=== PATIENT | male | born 1945 | race Caucasian/White ===

== ENCOUNTER 2016-10-06 14:42 | Outpatient (CLI) | payer MEDICARE, OTHER | END 2016-10-06 14:43 | disposition home or self-care (01) | DX: E78.00 Pure hypercholesterolemia, unspecified (principal); E29.1 Testicular hypofunction ==

== ENCOUNTER 2018-10-15 15:33 | Emergency (ER) | payer MEDICARE, OTHER ==
[2018-10-15 15:46] VITALS: BP 134/70
--- NOTE | 2018-10-15 16:23 | ED Physician Documentation ---
PD HPI UPPER EXT INJURY - Stated complaint Stated Complaint: GLF-SHOULDER PX - Chief complaint Chief Complaint: Ext Problem - History obtained from History obtained from: Patient - History of Present Illness Location: Right (Pretty healthy 73-year-old angie with a history of a lot of bone and joint problems. He tripped over his dog and fell directly onto his right shoulder today and has severe pain radiating into the neck from the right shoulder. No other injuries. No head injury.) Review of Systems Constitutional: reports: Reviewed and negative Throat: reports: Reviewed and negative Cardiac: reports: Reviewed and negative Respiratory: reports: Reviewed and negative PD PAST MEDICAL HISTORY - Past Medical History Cardiovascular: High cholesterol Respiratory: Sleep apnea Endocrine/Autoimmune: None GI: Hiatal hernia HEENT: None Psych: None Musculoskeletal: Osteoarthritis, Fibromyalgia, Other Derm: None - Past Surgical History Past Surgical History: Yes Ortho: Rotator cuff repair - Present Medications Home Medications: Ambulatory Orders Medication Instructions Recorded Confirmed Cholecalciferol (Vitamin D3) 2,000 unit PO DAILY 08/23/14 08/24/14 [] Cimetidine [Tagamet Hb] 200 mg PO DAILY 08/23/14 08/23/14 Lysine 500 mg PO DAILY 08/23/14 08/23/14 Multivitamin with Minerals [Hair, 1 cap PO DAILY 08/23/14 08/23/14 Skin & Nails] Vitamin B Complex [B-100 Complex] 1 each PO DAILY 08/23/14 08/23/14 - Allergies Allergies/Adverse Reactions: Allergies Allergy/AdvReac Type Severity Reaction Status Date / Time No Known Drug Allergies Allergy Verified 10/15/18 15:50 - Social History Does the pt smoke?: No Smoking Status: Never smoker Does the pt drink ETOH?: Yes ETOH Use: Beer Does the pt have substance abuse?: No - Immunizations Immunizations are current?: Yes - POLST Patient has POLST: Yes PD ED PE NORMAL - Vitals Vital signs reviewed: Yes - General General: Alert and oriented X 3, No acute distress - Neck Neck: Other (Mild tenderness to the mid and upper cervical spine) - Extremities Extremities: Other (Tender to the posterior right shoulder with severely limited range of motion especially in abduction and and internal rotation.) - Neuro Neuro: Alert and oriented X 3, Normal speech Results - Vitals Vitals: Vital Signs - 24 hr 10/15/18 15:40 Temperature 36.5 C Heart Rate 82 Respiratory 17 Rate Blood Pressure 134/70 H O2 Saturation 99 Oxygen O2 Source Room air - Rads (name of study) C spine CT Radiology: EMP read contemporaneously (DDD/DJD, NAD) 3v R shoulder Radiology: EMP read contemporaneously (NAD) Departure - Departure Disposition: 01 Home, Self Care Clinical Impression: Rotator cuff disorder Qualifiers: Laterality: right Qualified Code(s): M67.911 - Unspecified disorder of synovium and tendon, right shoulder Neck sprain Qualifiers: Encounter type: initial encounter Qualified Code(s): S13.9XXA - Sprain of joints and ligaments of unspecified parts of neck, initial encounter Condition: Good Record reviewed to determine appropriate education?: Yes Instructions: ED Sprain Strain Neck, ED Torn Rotator Cuff Comments: As discussed, your examination is suggestive of an injury to the rotator cuff. Follow-up with your orthopedic surgeon. Do the exercises as shown and wear the sling as little as possible and for no more than 2-3 days.
--- NOTE | 2018-10-15 16:34 | XRAY Report ---
Reason: injury Procedure Date: 10/15/2018 Accession Number: [id number] / [id number] Procedure: XR - Shoulder 3 View RT CPT Code: FULL RESULT: EXAM: RIGHT SHOULDER RADIOGRAPHY EXAM DATE: 10/15/2018 04:20 PM. CLINICAL HISTORY: Injury. Right shoulder pain radiating to C-spine after ground-level fall today. COMPARISON: None. TECHNIQUE: 3 views. FINDINGS: Bones: No fracture or bone lesion. Joints: The glenohumeral and acromioclavicular joints are normal. Soft tissues: The visualized hemithorax is unremarkable. No soft tissue swelling. IMPRESSION: Within normal limits. RADIA
--- NOTE | 2018-10-15 17:09 | CT Report ---
Reason: neck inj Procedure Date: 10/15/2018 Accession Number: [id number] / [id number] Procedure: CT - CERVICAL SPINE WO CPT Code: FULL RESULT: EXAM: CT CERVICAL SPINE WITHOUT CONTRAST DATE: 10/15/2018 04:50 PM. HISTORY: Trauma, pain. COMPARISONS: CERVICAL SPINE W/O 06/14/2014 4:40 AM. TECHNIQUE: Thin-section axial images were acquired of the cervical spine without contrast. Post-processing: Coronal and sagittal reformats. Other: None. In accordance with CT protocol optimization, one or more of the following dose reduction techniques were utilized for this exam: automated exposure control, adjustment of mA and/or KV based on patient size, or use of iterative reconstructive technique. FINDINGS: Alignment: No scoliosis or spondylolisthesis. Bones: No fracture or bone lesion. Interspace Levels/Facets: Disk space narrowing at C3-C4 and C5-C6 with minimal narrowing at C2-C3. Other disk spaces preserved. Mild to moderate degenerative changes. Musculature: Normal. No fatty atrophy. Other: The paravertebral and prevertebral soft tissues are unremarkable. The lung apices are clear. IMPRESSION: Degenerative changes. No acute disease. RADIA
[2018-10-15] MEDS ORDERED: oxyCODONE 5 MG TABLET PO STA (17:20)
== END 2018-10-15 17:27 | disposition home or self-care (01) ==
LOC: ED 15:33
DX: M67.911 Unspecified disorder of synovium and tendon, right shoulder (principal); S13.9XXA Sprain of joints and ligaments of unspecified parts of neck, initial encounter; W01.0XXA Fall on same level from slipping, tripping and stumbling without subsequent striking against object, initial encounter; Y92.009 Unspecified place in unspecified non-institutional (private) residence as the place of occurrence of the external cause
CPT/HCPCS: 72125; 73030; 99283; A9270

== ENCOUNTER 2019-05-16 09:32 | Outpatient (CLI) | payer MEDICARE, OTHER ==
[2019-05-16 18:04] LABS: ALBUMIN 4.2 g/dL (3.2-5.5); ALBUMIN/GLOBULIN RATIO 1.4 (1.0-2.2); ALKALINE PHOSPHATASE 52 IU/L (42-121); ALT ALANINE AMINOTRANSFERASE 26 IU/L (10-60); AST ASPARTATE AMINOTRANSFERASE 23 IU/L (10-42); BUN - BLOOD UREA NITROGEN 18 mg/dL (6-20); CALCIUM 9.4 mg/dL (8.5-10.3); CARBON DIOXIDE - CO2 31 mmol/L (21-32); CHLORIDE 104 mmol/L (101-111); CK- CREATINE KINASE 63 IU/L (22-269); GFR - MDRD 73 (>89); GLUCOSE 87 mg/dL (70-100); SODIUM 142 mmol/L (135-145); TOTAL PROTEIN 7.1 g/dL (6.7-8.2)
[2019-05-16 18:43] LABS: CRP - C-REACTIVE PROTEIN < 1.0 mg/dL (0-1.0)
== END 2019-05-16 09:33 | disposition home or self-care (01) ==
LOC: LAB.S 09:32
PROVIDERS: ATTEND Internal Medicine Rheumatology
DX: G90.09 Other idiopathic peripheral autonomic neuropathy (principal)
CPT/HCPCS: 36415; 80053; 82550; 86140

== ENCOUNTER 2020-03-31 08:52 | Outpatient (CLI) | payer MEDICARE, OTHER | END 2020-03-31 08:53 | disposition critical access hospital (66) | LOC: EMS 08:52 | PROVIDERS: ATTEND Surgery | DX: S09.90XA Unspecified injury of head, initial encounter (principal); S19.9XXA Unspecified injury of neck, initial encounter; S49.92XA Unspecified injury of left shoulder and upper arm, initial encounter; W19.XXXA Unspecified fall, initial encounter; Y92.009 Unspecified place in unspecified non-institutional (private) residence as the place of occurrence of the external cause; R55 Syncope and collapse | CPT/HCPCS: A0425; A0427 ==

== ENCOUNTER 2020-03-31 09:18 | Emergency (ER) | payer MEDICARE, OTHER ==
[2020-03-31] MEDS ORDERED: methylPREDNISolone SUCCINATE 40 MG/ML VIAL IVP STA (09:25)
[2020-03-31] MEDS ORDERED: SODIUM CHLORIDE 0.9% 1,000 ML IV STA (09:25)
--- NOTE | 2020-03-31 09:27 | ED Physician Documentation ---
PD HPI Fall - Stated complaint Stated Complaint: DIZZY - History obtained from History obtained from: Patient, EMS - Additional information Additional information: 74-year-old gentleman presents by ambulance after a fall. He started Flomax yesterday, he is not sure what but presume for prostate issues. When he filled the Flomax, the pharmacist said to stop his prednisone which was at 5 mg a day because of a potential interaction. He was on the prednisone for bone and joint issues. He got very lightheaded and subsequently fell. He hit his head and injured his chest wall on the way down. He was still very dizzy. tried to sit him up and he syncopized. Reportedly complained of some throat swelling on the way in which resolved after Benadryl. No physical findings per the medical reimbursement manager at that time. Review of Systems Unable to obtain: Confused PD PAST MEDICAL HISTORY - Past Medical History Cardiovascular: High cholesterol Respiratory: Sleep apnea Endocrine/Autoimmune: None GI: Hiatal hernia HEENT: None Psych: None Musculoskeletal: Osteoarthritis, Fibromyalgia, Other Derm: None - Past Surgical History Past Surgical History: Yes Ortho: Rotator cuff repair - Present Medications Home Medications: Ambulatory Orders Medication Instructions Recorded Confirmed Cholecalciferol (Vitamin D3) 2,000 unit PO DAILY 08/23/14 08/24/14 [D-2000] Cimetidine [Tagamet Hb] 200 mg PO DAILY 08/23/14 08/23/14 Lysine 500 mg PO DAILY 08/23/14 08/23/14 Multivitamin with Minerals [Hair, 1 cap PO DAILY 08/23/14 08/23/14 Skin & Nails] Vitamin B Complex [B-100 Complex] 1 each PO DAILY 08/23/14 08/23/14 Oxycodone HCl/Acetaminophen 1 - 2 each PO Q6H PRN #14 tablet 10/15/18 [Percocet 5-325 mg Tablet] - Allergies Allergies/Adverse Reactions: Allergies Allergy/AdvReac Type Severity Reaction Status Date / Time No Known Drug Allergies Allergy Verified 03/31/20 09:35 - Social History Does the pt smoke?: No Smoking Status: Never smoker Does the pt drink ETOH?: Yes Does the pt have substance abuse?: No - Immunizations Immunizations are current?: Yes - POLST Patient has POLST: Yes PD ED PE NORMAL - Vitals Vital signs reviewed: Yes - General General: Other (He is slow to answer questions and answers in monosyllables. Seems slightly confused.) - HEENT HEENT: PERRL - Neck Neck: Other (Very mild upper C-spine tenderness) - Cardiac Cardiac: RRR, No murmur - Respiratory Respiratory: No respiratory distress, Clear bilaterally - Abdomen Abdomen: Other (Very mild left upper quadrant tenderness) - Back Back: No CVA TTP, No spinal TTP - Derm Derm: Normal color, Warm and dry - Extremities Extremities: No deformity, No tenderness to palpate, Normal ROM s pain, Other (On subsequent examination he was complaining of some elbow pain. He could flex and extend it all the way. Very mildly tender over the left olecranon.) - Neuro Neuro: No motor deficit, No sensory deficit Eye Opening: To Voice Motor: Obeys Commands Verbal: Confused GCS Score: 13 Results - Vitals Vitals: Vital Signs - 24 hr 03/31/20 03/31/20 03/31/20 09:24 10:35 11:00 Temperature 36.4 C L Heart Rate 73 75 70 Heart Rate [ Sitting] Heart Rate [ Standing] Heart Rate [ Supine] Respiratory 14 18 14 Rate Blood Pressure 126/67 115/65 119/66 Blood Pressure [Sitting] Blood Pressure [Standing] Blood Pressure [Supine] O2 Saturation 100 97 96 03/31/20 03/31/20 11:30 11:52 Temperature Heart Rate 75 Heart Rate [ 79 Sitting] Heart Rate [ 101 H Standing] Heart Rate [ 75 Supine] Respiratory 14 Rate Blood Pressure 128/68 Blood Pressure 131/78 H [Sitting] Blood Pressure 132/85 H [Standing] Blood Pressure 122/75 [Supine] O2 Saturation 98 Oxygen O2 Source Room air - EKG (time done) 0928 Rate: Rate (enter#) (73) Rhythm: NSR [place]: Normal Intervals: Normal [place] QRS: Normal, Low voltage Ischemia: Normal ST segments Computer interpretation: Disagree with computer - Labs Labs: Laboratory Tests 03/31/20 03/31/20 03/31/20 09:30 09:30 09:30 WBC 5.0 RBC 4.16 L Hgb 12.8 L Hct 38.5 L MCV 92.5 MCH 30.8 MCHC 33.2 RDW 12.4 Plt Count 242 MPV 8.6 Neut # (Auto) 3.3 Lymph # (Auto) 1.1 L Person # (Auto) 0.5 Eos # (Auto) 0.1 Baso # (Auto) 0.0 Absolute Nucleated RBC 0.00 Nucleated RBC % 0.0 Sodium 139 Potassium 4.4 Chloride 103 Carbon Dioxide 24 Anion Gap 12.0 BUN 16 Creatinine 1.1 Estimated GFR (MDRD) 65 L Glucose 100 Calcium 8.7 Total Bilirubin 1.1 H AST 21 ALT 20 Alkaline Phosphatase 49 Total Protein 6.1 L Albumin 3.6 Globulin 2.5 Albumin/Globulin Ratio 1.4 Lipase 25 Urine Color Urine Clarity Urine pH Ur Specific [place] Urine Protein Urine Glucose (UA) Urine Ketones Urine Occult Blood Urine Nitrite Urine Bilirubin Urine Urobilinogen Ur Leukocyte Esterase Ur Microscopic Review Urine Culture Comments Ethyl Alcohol < 5.0 Blood Type O POSITIVE Antibody Screen NEGATIVE 03/31/20 10:45 WBC RBC Hgb Hct MCV MCH MCHC RDW Plt Count MPV Neut # (Auto) Lymph # (Auto) Person # (Auto) Eos # (Auto) Baso # (Auto) Absolute Nucleated RBC Nucleated RBC % Sodium Potassium Chloride Carbon Dioxide Anion Gap BUN Creatinine Estimated GFR (MDRD) Glucose Calcium Total Bilirubin AST ALT Alkaline Phosphatase Total Protein Albumin Globulin Albumin/Globulin Ratio Lipase Urine Color YELLOW Urine Clarity CLEAR Urine pH 7.5 Ur Specific [place] 1.015 Urine Protein NEGATIVE Urine Glucose (UA) NEGATIVE Urine Ketones NEGATIVE Urine Occult Blood NEGATIVE Urine Nitrite NEGATIVE Urine Bilirubin NEGATIVE Urine Urobilinogen 0.2 (NORMAL) Ur Leukocyte Esterase NEGATIVE Ur Microscopic Review NOT INDICATED Urine Culture Comments NOT INDICATED Ethyl Alcohol Blood Type Antibody Screen - Rads (name of study) cT hEAD/cSPINE/cHEST/aBD/pELV Radiology: EMP read contemporaneously (No acute findings, incidental note of 6 mm nonobstructing left renal stone, left inguinal hernia, degenerative changes of the spine.) PD MEDICAL DECISION MAKING - ED course ED course: 74-year-old gentleman had a syncopal episode today, hitting his head and with multiple other injuries, no serious injuries were found on thorough imaging. The history suggest that the syncope is probably from a combination of suddenly stopping his long-term steroids as well as stop starting Flomax at the same t taqueria. After the administration of 2 L of IV fluids he was feeling much better but was still noted to be modestly orthostatic and was administered A 3RD L of crystalloid. Departure - Departure Disposition: 01 Home, Self Care Clinical Impression: Orthostatic hypotension, Chest wall pain Syncope Qualifiers: Syncope type: unspecified Qualified Code(s): R55 - Syncope and collapse Altered mental status Qualifiers: Altered mental status type: delirium Qualified Code(s): R41.0 - Disorientation, unspecified Neck sprain Qualifiers: Encounter type: initial encounter Qualified Code(s): S13.9XXA - Sprain of joints and ligaments of unspecified parts of neck, initial encounter Condition: Stable Record reviewed to determine appropriate education?: Yes Instructions: ED Hypotension Orthostatic Comments: You were seen today after a passing out episode with injury. Thankfully no serious injuries were identified. It seems like the passing out episode was likely due to a combination of suddenly stopping your prednisone and starting Flomax. I would stop the Flomax and go back on your prednisone. Follow-up with your doctor, next available appointment. Return if worsening.
[2020-03-31 09:41] LABS: BASOPHILS % (AUTO) 0.8 %; EOSINOPHILS # (AUTO) 0.1 10^3/uL (0.0-0.7); EOSINOPHILS % (AUTO) 2.2 %; HGB - HEMOGLOBIN 12.8 g/dL (14.0-18.0); LYMPHOCYTES # (AUTO) 1.1 10^3/uL (1.5-3.5); LYMPHOCYTES % (AUTO) 21.2 %; MEAN CORPUSCULAR HEMOGLOBIN 30.8 pg (27.0-31.0); MEAN CORPUSCULAR HGB CONC 33.2 g/dL (32.0-36.0); MEAN CORPUSCULAR VOLUME 92.5 fL (80.0-94.0); MEAN PLATELET VOLUME 8.6 fL (7.4-11.4); MONOCYTES # (AUTO) 0.5 10^3/uL (0.0-1.0); MONOCYTES % (AUTO) 9.9 %; NEUTROPHILS # (AUTO) 3.3 10^3/uL (1.5-6.6); NEUTROPHILS % (AUTO) 65.3 %; PLT - PLATELET COUNT 242 10^3/uL (130-450); RED BLOOD COUNT 4.16 10^6/uL (4.70-6.10); RED CELL DISTRIBUTION WIDTH 12.4 % (12.0-15.0)
[2020-03-31 09:55] LABS: ALBUMIN 3.6 g/dL (3.2-5.5); ALBUMIN/GLOBULIN RATIO 1.4 (1.0-2.2); ALKALINE PHOSPHATASE 49 IU/L (42-121); ALT ALANINE AMINOTRANSFERASE 20 IU/L (10-60); AST ASPARTATE AMINOTRANSFERASE 21 IU/L (10-42); BILIRUBIN,TOTAL 1.1 mg/dL (0.2-1.0); BUN - BLOOD UREA NITROGEN 16 mg/dL (6-20); CALCIUM 8.7 mg/dL (8.5-10.3); CARBON DIOXIDE - CO2 24 mmol/L (21-32); CHLORIDE 103 mmol/L (101-111); CREATININE 1.1 mg/dL (0.6-1.2); GLUCOSE 100 mg/dL (70-100); LIPASE 25 U/L (22-51); SODIUM 139 mmol/L (135-145); TOTAL PROTEIN 6.1 g/dL (6.7-8.2)
[2020-03-31] MEDS ORDERED: IOVERSOL 320 100 ML VIAL IVP ONE ×2 (10:02→10:39)
[2020-03-31] MEDS ORDERED: LACTATED RINGERS 1,000 ML IV STA ×2 (10:42→11:58)
--- NOTE | 2020-03-31 10:50 | CT Report ---
PROCEDURE: HEAD WO INDICATIONS: Head trauma, abnormal mental status TECHNIQUE: Noncontrast 4.5 mm thick angled axial sections acquired from the foramen magnum to the vertex. For r adiation dose reduction, the following was used: automated exposure control, adjustment of mA and/or kV according to patient size. COMPARISON: Correlation is made with the prior brain MRI, 06/17/2014. Correlation is also made with t he accompanying cervical, chest, and abdomen and pelvis CT examinations, 03/31/2020. FINDINGS: Image quality: Excellent. CSF spaces: Basal cisterns are patent. No extra-axial fluid collections. Ventricles are normal in size and shape. Brain: No midline shift. No intracranial masses or hemorrhage. Richardson-white matter interface is norm al. Brain parenchymal volume loss is seen. Chronic small vessel ischemic change can be seen. 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 Skull and face: Calvarium and visualized facial bones are intact, without suspicious lesions. Sinuses: Visualized sinuses and mastoids are clear. IMPRESSION: No intracranial hemorrhage is seen. Age-appropriate brain parenchymal volume loss and chronic small vessel ischemic change can be seen. Reviewed by: Renaldo Knott MD on 03/31/2020 9:49 AM KODAK Approved by: Renaldo Knott MD on 03/31/2020 9:49 AM KODAK Station ID: [id number]
--- NOTE | 2020-03-31 10:52 | CT Report ---
PROCEDURE: CHEST W INDICATIONS: Chest trauma, blunt, low energy CONTRAST: IV CONTRAST: Optiray 320 ml: 100 PO CONTRAST: *NO PO CONTRAST TECHNIQUE: After the administration of intravenous contrast, 5 mm thick sections acquired from the pulmonary api lacey to the posterior costophrenic angles. 7 mm thick coronal MIP reformats were acquired. For radia tion dose reduction, the following was used: automated exposure control, adjustment of mA and/or kV according to patient size. COMPARISON: Correlation is made with the accompanying CT studies of the head, cervical spine, and ab domen/pelvis. FINDINGS: Image quality: Excellent. Lungs and pleura: Mild dependent atelectasis can be seen. No pleural effusions or pneumothorax. Cent ral and peripheral airways are patent and normal in caliber. Mediastinum: Heart size is normal. No pericardial effusion. No mediastinal or hilar adenopathy by size criteria. Thoracic aorta and central pulmonary arteries are normal in size. Esophagus is adriana l in caliber. No hiatal hernia. Bones and chest wall: No suspicious bony lesions. Age-appropriate degenerative changes are seen. There is accentuated thoracic kyphosis. No vertebral body compression fractures. No axillary or kowalski praclavicular adenopathy by size criteria. Thyroid gland demonstrates no significant CT abnormality. Abdomen: Visualized upper abdominal solid organs appear normal. Upper abdominal bowel loops are nor mal in caliber. IMPRESSION: No rib fracture, thoracic spine fracture, or pneumothorax can be seen. No acute abnormality is identified. Reviewed by: Renaldo Knott MD on 03/31/2020 9:51 AM KODAK Approved by: Renaldo Knott MD on 03/31/2020 9:51 AM KODAK Station ID: [id number]
--- NOTE | 2020-03-31 10:59 | CT Report ---
PROCEDURE: CERVICAL SPINE WO INDICATIONS: Neck trauma, midline tenderness TECHNIQUE: Noncontrast 3 mm thick sections acquired from the skull base to the T4 level. Sagittal and coronal r eformats were then constructed. For radiation dose reduction, the following was used: automated exp osure control, adjustment of mA and/or kV according to patient size. COMPARISON: Prior cervical spine examinations dated 10/15/2018 and 06/14/2017 Correlation is also made with the accompanying head CT, chest CT, and CT of the abdomen and pelvis, 03/31/2020. FINDINGS: Image quality: Excellent. Bones: No fractures or dislocations. Visualized superior ribs are intact. Degenerative changes are seen, with at least moderate disc space narrowing seen at C3-C4 and C5-C6. A t least partial fusion of the facet joints can be seen at C3-C4. Focal degenerative change can also b e seen involving the C1-C2 interface anteriorly. Milder degenerative changes are seen elsewhere. Soft tissues: Prevertebral soft tissues are normal in thickness. No paravertebral hematomas. No ap ical pneumothoraces. IMPRESSION: No acute fractures are seen. Degenerative changes are seen, which are worst at C3-C4 and at C5-C6. Reviewed by: Renaldo Knott MD on 03/31/2020 9:57 AM KODAK Approved by: Renaldo Knott MD on 03/31/2020 9:57 AM KODAK Station ID: [id number]
--- NOTE | 2020-03-31 11:03 | CT Report ---
PROCEDURE: Abdomen/Pelvis W INDICATIONS: Abdominal trauma, blunt CONTRAST: IV CONTRAST: Optiray 320 ml: 100 PO CONTRAST: *NO PO CONTRAST TECHNIQUE: After the administration of nonionic IV contrast, 5 mm thick sections acquired from the diaphragms to the symphysis. 5 mm thick coronal and sagittal reformats were acquired. For radiation dose reducti on, the following was used: automated exposure control, adjustment of mA and/or kV according to lily ent size. COMPARISON: Correlation is made with the accompanying CT examinations of the head, cervical spine, a nd chest dated 03/31/2020 FINDINGS: Image quality: Excellent. ABDOMEN: Lung bases: Mild dependent atelectasis can be seen. Heart size is normal. Solid organs: Liver and spleen are normal in size and enhancement. Gallbladder wall does not appear thickened. Biliary system is non dilated. Pancreas enhances normally. No adrenal nodules. Kidn eys demonstrate normal size and enhancement, without hydronephrosis. A nonobstructing 6 mm left richard l stone is incidentally noted. Peritoneum and bowel: Bowel loops demonstrate normal wall thickness and caliber. No free fluid or a ir. A normal appendix is incidentally noted. Nodes and vessels: No retroperitoneal or mesenteric adenopathy by size criteria. Aorta and inferior vena cava are normal in size. Atherosclerotic calcification is seen. Miscellaneous: No ventral hernias. PELVIS: Genitourinary: Bladder wall thickness is normal. Miscellaneous: No inguinal adenopathy. There is a fat-containing left inguinal hernia seen. Bones: No suspicious bony lesions. No vertebral body compression fractures. Age-appropriate degene rative changes are seen. Bridging endplate osteophytes are seen at L2-L3. IMPRESSION: No acute fractures are seen. No acute posttraumatic abnormality can be seen. Incidental note is made of: Nonobstructing 6 mm left renal stone Normal appendix A fat-containing left inguinal hernia is seen. Bony degenerative changes, with bridging endplate osteophytes at L2-L3. Reviewed by: Renaldo Knott MD on 03/31/2020 10:01 AM KODAK Approved by: Renaldo Knott MD on 03/31/2020 10:01 AM KODAK Station ID: [id number]
--- NOTE | 2020-03-31 11:04 | XRAY Report ---
PROCEDURE: Elbow 3 View LT INDICATIONS: elbow pain TECHNIQUE: 3 views of the elbow were acquired. COMPARISON: None available FINDINGS: Bones: No fractures or dislocations. No suspicious bony lesions. Age-appropriate degenerative slade ges are seen. Soft tissues: No elbow joint effusion. Focal calcification can be seen along the lateral epicondyle, which is suggestive of prior epicondylitis. IMPRESSION: Degenerative changes, without acute bony abnormality. If there is focal tenderness (or other strong clinical concern for a fracture that is not seen on thi s plain film study) then please consider a dedicated CT for further evaluation. Reviewed by: Renaldo Knott MD on 03/31/2020 10:02 AM KODAK Approved by: Renaldo Knott MD on 03/31/2020 10:02 AM KODAK Station ID: [id number]
[2020-03-31 11:08] LABS: BILIRUBIN,URINE NEGATIVE (NEGATIVE); GLUCOSE, URINE (UA) NEGATIVE (NEGATIVE); KETONES,URINE (UA) NEGATIVE (NEGATIVE); LEUKOCYTE ESTERASE, URINE NEGATIVE (NEGATIVE); NITRITE,URINE NEGATIVE (NEGATIVE); OCCULT BLOOD,URINE NEGATIVE (NEGATIVE); PH,URINE 7.5 PH (5.0-7.5); PROTEIN,URINE NEGATIVE (NEGATIVE); UROBILINOGEN,URINE 0.2 (NORMAL) E.U./dL (NORMAL)
[2020-03-31 11:11] LABS: CLARITY,URINE CLEAR (CLEAR)
[2020-03-31 12:50] VITALS: BP 110/89
== END 2020-03-31 12:58 | disposition home or self-care (01) ==
LOC: EDUNIT# → ED 09:18
DX: I95.1 Orthostatic hypotension (principal); R42 Dizziness and giddiness; R41.0 Disorientation, unspecified; R07.89 Other chest pain; S13.9XXA Sprain of joints and ligaments of unspecified parts of neck, initial encounter; W18.30XA Fall on same level, unspecified, initial encounter; M47.812 Spondylosis without myelopathy or radiculopathy, cervical region; M19.022 Primary osteoarthritis, left elbow; N20.0 Calculus of kidney; K40.90 Unilateral inguinal hernia, without obstruction or gangrene, not specified as recurrent
CPT/HCPCS: 36415; 70450; 71260; 72125; 73080; 74177; 80053; 81003; 83690; 85025; 86850; 86900; 86901; 93005; 96361; 96374; 99281; 99284; J7120; Q9967; 80320; 81001; 87086

== ENCOUNTER 2020-04-09 08:49 | Outpatient (CLI) | payer MEDICARE, OTHER | END 2020-04-09 08:50 | disposition home or self-care (01) | LOC: LAB.S 08:49 | PROVIDERS: ATTEND Internal Medicine | DX: Z12.5 Encounter for screening for malignant neoplasm of prostate (principal) | CPT/HCPCS: 36415; G0103; 84153 ==

== ENCOUNTER 2021-11-19 08:00 | Outpatient (CLI) | payer MEDICARE, OTHER ==
[2021-11-19 20:20] LABS: CALCIUM 8.9 mg/dL (8.5-10.3)
== END 2021-11-19 23:59 | disposition home or self-care (01) ==
LOC: LAB.S 08:00
PROVIDERS: ATTEND Registered Nurse
DX: U07.1 COVID-19 (principal)
CPT/HCPCS: 36415; 80048

== ENCOUNTER 2022-04-03 15:59 | Outpatient (CLI) | payer MEDICARE, OTHER ==
--- NOTE | 2022-04-03 16:28 | XRAY Report ---
PROCEDURE: Chest 2 View X-Ray INDICATIONS: XRAY TECHNIQUE: PA and lateral views of the chest. COMPARISON: 03/31/[address] FINDINGS: Normal cardiac, mediastinal, and hilar contours. No visible pleural effusion or findings of pneumotho rax. The lungs are clear. IMPRESSION: No acute cardiopulmonary process demonstrated radiographically. Reviewed by: Tariq Thomas MD on 04/03/2022 4:27 PM PDT Approved by: Tariq Thomas MD on 04/03/2022 4:27 PM PDT Station ID: [id number]
== END 2022-04-03 16:00 | disposition home or self-care (01) ==
LOC: DI.S 15:59
PROVIDERS: ATTEND Registered Nurse
DX: U09.9 Post COVID-19 condition, unspecified (principal); R06.02 Shortness of breath

== ENCOUNTER 2022-04-04 08:13 | Outpatient (CLI) | payer MEDICARE, OTHER ==
[2022-04-04 14:47] LABS: BASOPHILS % (AUTO) 0.6 %; EOSINOPHILS # (AUTO) 0.3 10^3/uL (0.0-0.7); HGB - HEMOGLOBIN 13.7 g/dL (14.0-18.0); LYMPHOCYTES # (AUTO) 1.6 10^3/uL (1.5-3.5); LYMPHOCYTES % (AUTO) 25.6 %; MEAN CORPUSCULAR HEMOGLOBIN 30.3 pg (27.0-31.0); MEAN CORPUSCULAR HGB CONC 32.6 g/dL (32.0-36.0); MEAN CORPUSCULAR VOLUME 92.9 fL (80.0-94.0); MEAN PLATELET VOLUME 8.8 fL (7.4-11.4); MONOCYTES # (AUTO) 0.7 10^3/uL (0.0-1.0); MONOCYTES % (AUTO) 11.3 %; NEUTROPHILS # (AUTO) 3.6 10^3/uL (1.5-6.6); NEUTROPHILS % (AUTO) 58.2 %; PLT - PLATELET COUNT 284 10^3/uL (130-450); RED BLOOD COUNT 4.52 10^6/uL (4.70-6.10); RED CELL DISTRIBUTION WIDTH 12.8 % (12.0-15.0); WHITE BLOOD COUNT 6.3 x10^3/uL (4.8-10.8)
[2022-04-04 15:17] LABS: THYROID STIMULATING HORMONE 3.49 uIU/mL (0.34-5.60)
[2022-04-04 15:22] LABS: ALBUMIN 4.1 g/dL (3.2-5.5); ALBUMIN/GLOBULIN RATIO 1.6 (1.0-2.2); ALKALINE PHOSPHATASE 73 IU/L (42-121); ALT ALANINE AMINOTRANSFERASE 17 IU/L (10-60); AST ASPARTATE AMINOTRANSFERASE 21 IU/L (10-42); BILIRUBIN,TOTAL 0.9 mg/dL (0.2-1.0); BUN - BLOOD UREA NITROGEN 17 mg/dL (6-20); CALCIUM 9.4 mg/dL (8.5-10.3); CARBON DIOXIDE - CO2 29 mmol/L (21-32); CHLORIDE 107 mmol/L (101-111); CHOL/HDL RATIO 4.6 (<5.0); CHOLESTEROL 242 mg/dL; CREATININE 1.1 mg/dL (0.6-1.2); GFR - MDRD 65 (>89); GLUCOSE 100 mg/dL (70-100); HDL CHOLESTEROL 53 mg/dL; LDL CHOLESTEROL,CALCULATED 166 mg/dL; LDL/HDL RATIO 3.1 (<3.6); POTASSIUM 4.6 mmol/L (3.5-5.0); SODIUM 141 mmol/L (135-145); TOTAL PROTEIN 6.6 g/dL (6.7-8.2); TRIGLYCERIDES 115 mg/dL; VLDL CHOLESTEROL 23 mg/dL
== END 2022-04-04 08:14 | disposition home or self-care (01) ==
LOC: LAB.S 08:13
PROVIDERS: ATTEND Registered Nurse
DX: E78.00 Pure hypercholesterolemia, unspecified (principal); Z79.899 Other long term (current) drug therapy; Z13.29 Encounter for screening for other suspected endocrine disorder
CPT/HCPCS: 36415; 80053; 80061; 83721; 84443; 85025

== ENCOUNTER 2023-06-26 09:11 | Outpatient (CLI) | payer MEDICARE, OTHER ==
[2023-06-26 15:16] LABS: BASOPHILS # (AUTO) 0.1 10^3/uL (0.0-0.1); EOSINOPHILS # (AUTO) 0.2 10^3/uL (0.0-0.7); EOSINOPHILS % (AUTO) 3.8 %; HCT - HEMATOCRIT 42.4 % (42.0-52.0); HGB - HEMOGLOBIN 13.8 g/dL (14.0-18.0); LYMPHOCYTES # (AUTO) 1.6 10^3/uL (1.5-3.5); LYMPHOCYTES % (AUTO) 32.7 %; MEAN CORPUSCULAR HEMOGLOBIN 29.9 pg (27.0-31.0); MEAN CORPUSCULAR HGB CONC 32.5 g/dL (32.0-36.0); MEAN CORPUSCULAR VOLUME 91.8 fL (80.0-94.0); MEAN PLATELET VOLUME 8.9 fL (7.4-11.4); MONOCYTES # (AUTO) 0.7 10^3/uL (0.0-1.0); MONOCYTES % (AUTO) 14.3 %; NEUTROPHILS # (AUTO) 2.4 10^3/uL (1.5-6.6); PLT - PLATELET COUNT 287 10^3/uL (130-450); RED BLOOD COUNT 4.62 10^6/uL (4.70-6.10); RED CELL DISTRIBUTION WIDTH 12.6 % (12.0-15.0)
[2023-06-26 16:14] LABS: ALBUMIN 4.2 g/dL (3.2-5.5); ALBUMIN/GLOBULIN RATIO 1.8 (1.0-2.2); ALKALINE PHOSPHATASE 78 IU/L (42-121); ALT ALANINE AMINOTRANSFERASE 17 IU/L (10-60); AST ASPARTATE AMINOTRANSFERASE 19 IU/L (10-42); BILIRUBIN,TOTAL 0.6 mg/dL (0.2-1.0); BUN - BLOOD UREA NITROGEN 19 mg/dL (6-20); CALCIUM 9.2 mg/dL (8.5-10.3); CARBON DIOXIDE - CO2 29 mmol/L (21-32); CHLORIDE 105 mmol/L (101-111); CHOL/HDL RATIO 5.2 (<5.0); CHOLESTEROL 256 mg/dL; CREATININE 1.1 mg/dL (0.6-1.3); GFR - MDRD 65 (>89); GLUCOSE 92 mg/dL (74-104); HDL CHOLESTEROL 49 mg/dL; LDL CHOLESTEROL,CALCULATED 177 mg/dL; LDL/HDL RATIO 3.6 (<3.6); POTASSIUM 4.6 mmol/L (3.5-4.5); SODIUM 140 mmol/L (135-145); THYROID STIMULATING HORMONE 4.49 uIU/mL (0.34-5.60); TOTAL PROTEIN 6.6 g/dL (6.4-8.9); TRIGLYCERIDES 151 mg/dL (48-352); VLDL CHOLESTEROL 30 mg/dL
== END 2023-06-26 09:12 | disposition home or self-care (01) ==
LOC: LAB.S 09:11
PROVIDERS: ATTEND Physician Assistant Medical
DX: Z00.00 Encounter for general adult medical examination without abnormal findings (principal); Z13.29 Encounter for screening for other suspected endocrine disorder; D64.9 Anemia, unspecified
CPT/HCPCS: 36415; 80053; 80061; 83721; 84443; 85025

== ENCOUNTER 2024-02-18 09:15 | Emergency (ER) | payer MEDICARE, OTHER ==
--- NOTE | 2024-02-18 11:35 | XRAY Report ---
PROCEDURE: Ribs w/PA Chest 3+V LT INDICATIONS: fall/L rib pain TECHNIQUE: 4 views of the ribs were acquired, along with a single view chest. COMPARISON: 04/03/2022. FINDINGS: Surgical changes and devices: None. Bones and chest wall: No fractures or dislocations. No suspicious bony lesions. Overlying soft tis sues appear unremarkable. Lungs and pleura: No pleural effusions or pneumothorax. Lungs appear clear. Mediastinum: Mediastinal contours appear normal. Heart size is normal. IMPRESSION: No displaced rib fracture or pneumothorax. Reviewed by: Asael Alberto MD on 02/18/2024 11:33 AM PDT Approved by: Asael Alberto MD on 02/18/2024 11:33 AM PDT Station ID: [id number]
[2024-02-18 12:03] VITALS: O2SAT 100
--- NOTE | 2024-02-18 12:14 | ED Physician Documentation ---
History of Present Illness - Stated complaint Stated Complaint: GLF - Chief complaint Chief Complaint: Trauma Ch/Bk - History obtained from History obtained from: Patient - Additonal information Additional information: The patient presents to the emergency department chief complaint of left rib cage pain after tripping and falling against a concrete step yesterday. He states it just hurts all the time. He is concerned he may have fractured a rib. He denies any other injuries whatsoever. He has been ambulatory since. He did not hit his head. He is able to catch himself otherwise. No cough or difficulty breathing other than it just hurting to take a deep breath. PD PAST MEDICAL HISTORY - Past Medical History Past Medical History: Yes Cardiovascular: High cholesterol Respiratory: Sleep apnea Endocrine/Autoimmune: None GI: Hiatal hernia HEENT: None Psych: None Musculoskeletal: Osteoarthritis, Fibromyalgia, Other Derm: None - Past Surgical History Past Surgical History: Yes Ortho: Rotator cuff repair - Present Medications Home Medications: Ambulatory Orders Medication Instructions Recorded Confirmed Cholecalciferol (Vitamin D3) 2,000 unit PO DAILY 08/23/14 08/24/14 [D-2000] Cimetidine [Tagamet Hb] 200 mg PO DAILY 08/23/14 08/23/14 Lysine 500 mg PO DAILY 08/23/14 08/23/14 Multivitamin with Minerals [Hair, 1 cap PO DAILY 08/23/14 08/23/14 Skin & Nails] Vitamin B Complex [B-100 Complex] 1 each PO DAILY 08/23/14 08/23/14 Oxycodone HCl/Acetaminophen 1 - 2 each PO Q6H PRN #14 tablet 10/15/18 [Percocet 5-325 mg Tablet] - Allergies Allergies/Adverse Reactions: Allergies Allergy/AdvReac Type Severity Reaction Status Date / Time No Known Drug Allergies Allergy Verified 02/18/24 09:30 - Social History Does the pt smoke?: No Smoking Status: Never smoker Does the pt drink ETOH?: Yes Does the pt have substance abuse?: No - Immunizations Immunizations are current?: Yes - POLST Patient has POLST: Yes PD ED PE NORMAL - Vitals Vital signs reviewed: Yes - General General: Alert and oriented X 3, No acute distress, Well developed/nourished - HEENT HEENT: Atraumatic, EOMI, Moist mucous membranes - Neck Neck: Supple, no meningeal sign - Cardiac Cardiac: RRR, No murmur, Strong equal pulses - Respiratory Respiratory: No respiratory distress, Clear bilaterally - Abdomen Abdomen: Soft, Non tender, Non distended - Derm Derm: Normal color, Warm and dry, No rash - Extremities Extremities: No deformity, No edema - Neuro Neuro: Other (Alert, grossly intact.) - Psych Psych: Normal mood, Normal affect - Free text exam Free text exam: Tenderness to palpation over the inferolateral aspect of the left anterior chest wall in the anterior axillary line. No crepitus, step-off, or skin breakage. No contusion. Results - Vitals Vitals: Oxygen O2 Source Room air - Rads (name of study) Left ribs and chest x-ray series Relevant Findings:: Final report received, See rad report (neg) PD Medical Decision Making - ED course Complexity details: reviewed results, re-evaluated patient, considered differential, d/w patient ED course: I have discussed with the patient that his x-ray series is negative there is no evidence of a fracture per radiology report. The patient could have contused ribs as well, but either way, either contusion or fracture we will have to get better on its own. We have discussed pain management at home and the patient prefers not to have prescription narcotics. We have discussed the need for breathing deeply and the usual indications for return. Departure - Departure Disposition: 01 Home, Self Care Clinical Impression: Contusion of rib on left side Qualifiers: Encounter type: initial encounter Qualified Code(s): S20.212A - Contusion of left front wall of thorax, initial encounter Condition: Stable Instructions: ED Contusion Rib Comments: Surprisingly, you do not have any fractures that are showing up on x-ray and you most likely bruised your ribs. Unfortunately, this can also be very painful, bu t will subside in time. You may take Tylenol and ibuprofen at home for the pain. We have offered you stronger pain medication but you would prefer not to do this at this time. Please be sure you are plate taking plenty of deep breaths, even if it hurts, so that you can get good air entry into your lungs and not develop pneumonia please follow-up with your primary doctor as needed. Forms: PCP List Discharge Date/Time: 02/18/24 12:20
[2024-02-18 12:25] VITALS: BP 129/79
== END 2024-02-18 12:20 | disposition home or self-care (01) ==
LOC: ED 09:15
DX: S20.212A Contusion of left front wall of thorax, initial encounter (principal); W01.198A Fall on same level from slipping, tripping and stumbling with subsequent striking against other object, initial encounter; E78.00 Pure hypercholesterolemia, unspecified; G47.30 Sleep apnea, unspecified
CPT/HCPCS: 99283